=== PATIENT | male | born 1950 | race Caucasian/White ===

== ENCOUNTER → 2022-04-01 | Outpatient (CLI) | payer MEDICARE | LOC: CT 09:59 | DX: R10.31 Right lower quadrant pain (principal); R63.4 Abnormal weight loss; E11.9 Type 2 diabetes mellitus without complications; I10 Essential (primary) hypertension; K76.9 Liver disease, unspecified; R91.8 Other nonspecific abnormal finding of lung field; E27.9 Disorder of adrenal gland, unspecified; R93.3 Abnormal findings on diagnostic imaging of other parts of digestive tract | CPT/HCPCS: Q9967 ==